=== PATIENT | male | born 1985 | race African-American/Black ===

== ENCOUNTER 2016-09-24 22:09 | Emergency (ER) | payer OTHER ==
[~2016-09-24] VITALS: Ht 190.5 cm; Wt 104.3 kg
[~2016-09-24 22:09] MED LIST: AMOXICILLIN500 MG ORAL; CLOTRIMAZOLE15 GM TOPIC; FLUCONAZOLE100 MG ORAL; GUAIFENESIN1200 MG PO; IBUPROFEN600 MG ORAL; NKM; PROMETHAZINE-C118 M1 ORAL; TRAMADOL HCL50 MG ORAL; ZYRTEC10 MG ORAL
[2016-09-24 22:39] VITALS: BP 146/93
[2016-09-24 22:41] LABS: APPEARANCE,URINE CLEAR; KETONES,URINE NEGATIVE (NEGATIVE); LEUKOCYTE ESTERASE ,URINE NEGATIVE (NEGATIVE); NITRITE,URINE NEGATIVE (NEGATIVE); PH,URINE 8 (4.5-8.0); PROTEIN,URINE NEGATIVE (NEGATIVE); UROBILINOGEN,URINE NORMAL MG/DL (0.0-1.0)
[2016-09-24] MEDS ORDERED: Azithromycin 250mg tab ORAL ONE (23:15)
[2016-09-24] MEDS ORDERED: DOXYCYCLINE MO100 MG ORAL (23:20)
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
[2016-09-24] MEDS ORDERED: Lidocaine 1% MPF 10mg/ml 5ml ONE (23:28)
[2016-09-25] VITALS: BP 135/87
[2016-09-25 00:05] VITALS: BP 146/93
== END 2016-09-25 00:05 | disposition home or self-care (01) ==
LOC: EMR 22:40
DX: N34.2 Other urethritis (principal)
CPT/HCPCS: 81003; 96372; 99283; J0696

== ENCOUNTER 2017-09-16 18:54 | Emergency (ER) | payer OTHER ==
[~2017-09-16] VITALS: Ht 190.5 cm; Wt 102.1 kg
[~2017-09-16 18:54] MED LIST changes: +DOXYCYCLINE MO100 MG ORAL
[2017-09-16 19:37] VITALS: BP 113/74
[2017-09-16] MEDS ORDERED: Ketorolac 60mg Inj IM ONE (20:00)
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
[2017-09-16] MEDS ORDERED: LIDODERM700 M1 TOPIC (20:04)
[2017-09-16] MEDS ORDERED: IBUPROFEN800 MG ORAL (20:04)
[2017-09-16] MEDS ORDERED: CYCLOBENZAPRINE10 MG ORAL (20:04)
[2017-09-16 20:42] VITALS: BP 129/72
== END 2017-09-16 20:43 | disposition home or self-care (01) ==
LOC: EMR 19:26
DX: S13.4XXA Sprain of ligaments of cervical spine, initial encounter (principal); V43.52XA Car driver injured in collision with other type car in traffic accident, initial encounter; Y93.9 Activity, unspecified; Y92.410 Unspecified street and highway as the place of occurrence of the external cause; M25.551 Pain in right hip; M25.561 Pain in right knee
CPT/HCPCS: 96372; 99283

== ENCOUNTER 2017-09-24 16:37 | Emergency (ER) | payer OTHER ==
[~2017-09-24] VITALS: Ht 190.5 cm; Wt 104.3 kg
[~2017-09-24 16:37] MED LIST changes: +CYCLOBENZAPRINE10 MG ORAL; +IBUPROFEN800 MG ORAL; +LIDODERM700 M1 TOPIC
[2017-09-24] MEDS ORDERED: Norco 5mg/325mg tab ORAL ONE (17:15)
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
[2017-09-24 17:21] VITALS: BP 121/81
[2017-09-24] MEDS ORDERED: Tetanus/Diptheria/Pertussis Vaccine 0.5ml Syr IM ONE (17:30)
[2017-09-24] MEDS ORDERED: Bacitracin Oint UD TOPIC ONE (17:30)
[2017-09-24] MEDS ORDERED: IBUPROFEN600 MG ORAL (18:41)
[2017-09-24] MEDS ORDERED: BACITRACIN-P28.35 GM TP (18:45)
[2017-09-24 18:59] VITALS: BP 118/78
--- NOTE | 2017-09-25 08:44 | Diagnostic Imaging Report ---
Indication: Chest pain Technique: One view of the chest Comparison: none Findings: Lungs and pleural spaces are clear. Heart size is normal Impression: No acute process
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
== END 2017-09-24 19:05 | disposition home or self-care (01) ==
LOC: EMR 17:30
DX: S00.511A Abrasion of lip, initial encounter (principal); S20.219A Contusion of unspecified front wall of thorax, initial encounter; S09.8XXA Other specified injuries of head, initial encounter; Y04.2XXA Assault by strike against or bumped into by another person, initial encounter; Y92.511 Restaurant or cafe as the place of occurrence of the external cause; H53.8 Other visual disturbances
CPT/HCPCS: 70450; 71045; 90471; 99284

== ENCOUNTER 2017-10-28 20:08 | Emergency (ER) | payer OTHER ==
[~2017-10-28] VITALS: Ht 190.5 cm; Wt 104.3 kg
[~2017-10-28 20:08] MED LIST changes: +BACITRACIN-P28.35 GM TP
--- NOTE | 2017-10-28 21:16 | Emergency Room Report ---
History of Present Illness General Chief Complaint: Pain Source: Patient Present Illness HPI 32-year-old male presents with 2 days of multiple episodes of cough followed by right shoulder pain and pleuritic chest pain, worse with cough No associated fevers, chills, history of COPD or asthma Patient has not taken any yesw-hkx-frfwnty medications for cough or pain No history of foreign travel, history of TB exposure, no history of recent pneumonia No fevers or chills Denies any abdominal pain, nausea, vomiting, urinary complaints or headache Allergies: Coded Allergies: No Known Allergies (Unverified , 09/24/16) Patient History Past Medical History: none Past Surgical History: none Pertinent Family History: none Social History: Denies: smoking, alcohol use, drug use Immunizations: UTD Reviewed Nursing Documentation: PMH: Agreed; PSxH: Agreed Nursing Documentation-PMH Past Medical History: No Stated History Review of Systems All Other Systems: negative except mentioned in HPI Physical Exam Vital Signs Date Time Temp Pulse Resp B/P (MAP) Pulse Ox O2 Delivery O2 Flow Rate FiO2 10/28/17 20:13 99.7 91 18 121/70 96 Room Air 99.7 Sp02 EP Interpretation: reviewed, normal General Appearance: normal inspection, well appearing, no apparent distress, alert, GCS 15, non-toxic, other - Very well-appearing, speaking on cell phone, texting Head: normocephalic, atraumatic Eyes: bilateral eye PERRL, bilateral eye EOMI ENT: normal ENT inspection, hearing grossly normal, normal pharynx, no angioedema, normal voice, TMs + canals normal, uvula midline, moist mucus membranes Neck: normal inspection, full range of motion, supple, thyroid normal, no meningismus, no bony tend Respiratory: normal inspection, lungs clear, normal breath sounds, no rhonchi, no respiratory distress, no retraction, no accessory muscle use, no wheezing, speaking full sentences Cardiovascular #1: regular rate, rhythm, no edema, no JVD, normal capillary refill Gastrointestinal: normal inspection, normal bowel sounds, non tender, soft, no mass, no peritonitis, non-distended, no guarding, no hernia, no pulsatile mass Genitourinary: no CVA tenderness Musculoskeletal: normal inspection, back normal, normal range of motion, no calf tenderness, pelvis stable, Mazin's Sign negative Neurologic: normal inspection, alert, oriented x3, responsive, coal unloader III-XII nml as tested, motor strength/tone normal, cerebellar normal, normal gait, speech normal Psychiatric: normal inspection, judgement/insight normal, mood/affect normal, no suicidal/homicidal ideation, no delusions Skin: normal inspection, normal color, no rash Lymphatic: normal inspection, no adenopathy Medical Decision Making Diagnostic Impression: Primary Impression: Cough Additional Impression: Pleuritic chest pain ER Course VSS, afebrile Chest x-ray negative for pneumonia, mass, other acute cause of cough Patient's vital signs are stable Observed hemoptysis likely due to multiple episodes of cough Low suspicion for rick hematemesis or hemoptysis Patient has not had any episodes of coughing up blood in the ER Was given albuterol for cough and T3 for pleuritic pain etiology likely costochondritis versus acute bronchitis We'll give prescriptions for Ventolin and Tylenol codeine as needed for pleuritic pain DC home with close primary care follow-up Chest X-Ray Diagnostic Results Chest X-Ray Diagnostic Results : Chest X-Ray Ordered: Yes # of Views/Limited/Complete: 1 View Indication: Other - cough EP Interpretation: Yes Interpretation: no consolidation, no effusion, no pneumothorax, no acute cardiopulmonary disease Impression: No acute disease Electronically Signed by: Dr Lalo Lopez Last Vital Signs Date Time Temp Pulse Resp B/P (MAP) Pulse Ox O2 Delivery O2 Flow Rate FiO2 10/28/17 20:13 99.7 91 18 121/70 96 Room Air 99.7 Status: improved Disposition: HOME, SELF-CARE Referrals: NON PHYSICIAN (PCP) LALO LOPEZ M.D. Oct 28, 2017 21:16
[2017-10-28] MEDS ORDERED: VENTOLIN HFA18 GM INH (21:17)
[2017-10-28] MEDS ORDERED: ACETAMINOPHEN-1 EAC1 ORAL (21:17)
[2017-10-28 21:35] VITALS: BP 121/70
--- NOTE | 2017-10-29 10:31 | Diagnostic Imaging Report ---
Indication: Cough Comparison: 09/24/2017 A single view chest radiograph was obtained. Findings: Cardiomediastinal appearance is within normal limits for age. Pulmonary vascularity is appropriate. The diaphragmatic contour is smooth and costophrenic angles are sharp. No pleural effusions are identified. The bones are unremarkable. Impression: No acute findings
== END 2017-10-28 21:35 | disposition home or self-care (01) ==
LOC: EMR 20:51
DX: R07.89 Other chest pain (principal); R05 Cough
CPT/HCPCS: 71045; 99283

== ENCOUNTER 2018-11-06 19:24 | Emergency (ER) | payer OTHER ==
[~2018-11-06] VITALS: Ht 190.5 cm; Wt 95.3 kg
[~2018-11-06 19:24] MED LIST changes: +ACETAMINOPHEN-1 EAC1 ORAL; +VENTOLIN HFA18 GM INH
[2018-11-06 19:30] VITALS: BP 137/84
--- NOTE | 2018-11-06 19:30 | NUR ---
ED Nurse Note: Patient walked into ED accompanied by SO c/o bilateral ear pain that radiates to his jaw for 2 weeks now. patient rates his pain a 9/10. patient is alert and oriented x4, ambulatory with a steady gait, VSS
--- NOTE | 2018-11-06 20:03 | Diagnostic Imaging Report ---
Indications: 9 out of 10 right ear and jaw pain for 2 weeks Technique: Spiral images obtained through the facial bones. No IV contrast utilized. Multiplanar reconstructions were generated.Total dose length product 608.43 mGycm. CTDIvol(s) 28.19 mGy. Dose reduction achieved using automated exposure control Comparison: none Findings: Grossly unremarkable mandibles and temporomandibular joints. No acute fractures. Grossly unremarkable middle ear structures. The mastoids are clear. There is a left maxillary sinus mucous retention cyst. There is minimal left ethmoid mucosal disease. The dentition is intact. The maxillary ostia are patent. The nasal septum is essentially midline. Impression: Essentially unremarkable exam Incidental finding minimal sinus disease This agrees with the preliminary interpretation provided overnight by [employer] [facility] service. The CT scanner at [facility] is accredited by the [employer] and the scans are performed using protocols designed to limit radiation exposure to as low as reasonably achievable to attain images of sufficient resolution adequate for diagnostic evaluation.
--- NOTE | 2018-11-06 20:05 | Emergency Room Report ---
History of Present Illness General Chief Complaint: Earache Source: Patient Present Illness HPI 33-year-old male with no significant past medical history here complaining of 2 weeks of pain and pressure of her right zygomatic bone and maxilla radiating to his right ear. Patient started applying a Q-tip thinking that the pain is coming from the right ear and has minimal bleeding of the right ear. Denies any hearing loss, vertigo, dizziness, trauma to the face, cough and congestion. Patient is rating the pain 9 out of 10 denying tingling and numbness and has full range of motion of his facial nerve. Denies sensory or motor deficits. Denies blurry vision. Denies photophobia, chest pain, palpitation, shortness of breath, and all other associated symptoms has not taken medication to alleviate his symptoms today. Denies any recent dental work or tooth pain Allergies: Coded Allergies: No Known Allergies (Unverified , 09/24/16) Patient History Past Medical History: see triage record Past Surgical History: unable to obtain Pertinent Family History: none Immunizations: UTD Reviewed Nursing Documentation: PMH: Agreed; PSxH: Agreed Nursing Documentation-PMH Past Medical History: No Stated History Review of Systems All Other Systems: negative except mentioned in HPI Physical Exam Vital Signs Date Time Temp Pulse Resp B/P (MAP) Pulse Ox O2 Delivery O2 Flow Rate FiO2 11/06/18 19:27 97.9 91 18 137/84 (101) 96 Room Air Sp02 EP Interpretation: reviewed, normal General Appearance: normal inspection, well appearing, no apparent distress, alert, GCS 15 Head: normocephalic, atraumatic Eyes: bilateral eye normal inspection, bilateral eye PERRL ENT: hearing grossly normal, normal pharynx, no angioedema, TMs + canals normal , uvula midline, moist mucus membranes, dry mucus membranes, other - Right maxillary sinus tenderness to palpation Neck: normal inspection, full range of motion, supple, thyroid normal Respiratory: normal inspection, chest non-tender, lungs clear, normal breath sounds, no rhonchi, no respiratory distress, no retraction, no wheezing Cardiovascular #1: normal inspection, no gallop, no murmur, normal capillary refill Gastrointestinal: normal inspection, non tender, no mass Rectal: deferred Genitourinary: no CVA tenderness Musculoskeletal: normal inspection, back normal, digits/nails normal, gait/ station normal, normal range of motion, non-tender Neurologic: normal inspection, alert, oriented x3, responsive Psychiatric: normal inspection, judgement/insight normal Lymphatic: normal inspection, no adenopathy Medical Decision Making PA Attestation All my diagnosis and treatment plans were reviewed ad discussed with my supervising physician Dr. Palomo Diagnostic Impression: Primary Impression: Sinusitis ER Course 33-year-old male with no significant past medical history here complaining of 2 weeks of pain and pressure of her right zygomatic bone and maxilla radiating to his right ear. Patient started applying a Q-tip thinking that the pain is coming from the right ear and has minimal bleeding of the right ear. Denies any hearing loss, vertigo, dizziness, trauma to the face, cough and congestion. Patient is rating the pain 9 out of 10 denying tingling and numbness and has full range of motion of his facial nerve. Denies sensory or motor deficits. Denies blurry vision. Denies photophobia, chest pain, palpitation, shortness of breath, and all other associated symptoms has not taken medication to alleviate his symptoms today. Denies any recent dental work or tooth pain Ddx considered but are not limited to: Otitis media, otitis externa, sinusitis, sinus abscess, TMJ Vital signs: are WNL, pt. is afebrile H&PE are most consistent with: Sinusitis, TMJ ORDERS: Facial CT scan no contrast, Augmentin, naproxen ED INTERVENTIONS: None required at this time. DISCHARGE: At this time pt. is stable for d/c to home. Will provide printed patient care instructions, and any necessary prescriptions. Care plan and follow up instructions have been discussed with the patient prior to discharge. Follow-up with the primary care provider avoid chewing hard food see a dentist also advised to be seen by ear nose throat doctor CT/MRI/US Diagnostic Results CT/MRI/US Diagnostic Results : Imaging Test Ordered: Facial CT no contrast Impression CT FACIAL Without Contrast: The only clinical history provided was "pain". No information regarding history of trauma or presence of inflammatory changes. Polyp or mucous retention cyst left maxillary sinus. Negative for air-fluid levels paranasal sinuses. Negative for fracture. No soft tissue fluid collections. Last Vital Signs Date Time Temp Pulse Resp B/P (MAP) Pulse Ox O2 Delivery O2 Flow Rate FiO2 11/06/18 19:27 97.9 91 18 137/84 (101) 96 Room Air Disposition: HOME, SELF-CARE Condition: Stable Scripts Naproxen* (NAPROXEN*) 500 Mg Tablet 500 MG ORAL TWICE A DAY, #15 TAB Prov: Rhys Ramesh 11/06/18 Amoxicillin/Potassium Clav 875-125* (AUGMENTIN 875-125 TABLET*) 1 Each Tablet 1 TAB ORAL TWICE A DAY for 10 Days, #20 TAB Prov: Rhys Ramesh 11/06/18 Patient Instructions: Sinusitis, Adult, [id number] Additional Instructions: Take medication as directed follow-up with your primary care provider avoid excoriation of your ear use of Q-tips Rhys Ramesh Nov 06, 2018 20:05
[2018-11-06] MEDS ORDERED: AUGMENTIN 875-1 EAC1 ORAL (20:06)
[2018-11-06] MEDS ORDERED: NAPROXEN500 M2 ORAL (20:06)
[2018-11-06 20:10] VITALS: BP 137/84
--- NOTE | 2018-11-06 20:10 | NUR ---
ER DISCHARGE NOTE: Patient is cleared to be discharged per ERMD, pt is aox4, on room air, with stable vital signs. pt was given dc and prescription instructions, pt was able to verbalize understanding, pt id band removed without complications. pt is able to ambulate with steady gait. pt took all belongings.
== END 2018-11-06 20:30 | disposition home or self-care (01) ==
LOC: EMR 20:11
DX: J32.9 Chronic sinusitis, unspecified (principal)
CPT/HCPCS: 70486; 99284

== ENCOUNTER 2019-05-28 10:01 | Emergency (ER) | payer OTHER ==
[~2019-05-28] VITALS: Ht 188 cm; Wt 104.3 kg
[~2019-05-28 10:01] MED LIST changes: +AUGMENTIN 875-1 EAC1 ORAL; +NAPROXEN500 M2 ORAL
[2019-05-28 10:16] VITALS: BP 137/95
--- NOTE | 2019-05-28 10:16 | NUR ---
ED Nurse Note: Pt ambulated to ed c/o flu like symptoms x 1 week; nasal congestions, cough, runny nose.
--- NOTE | 2019-05-28 10:17 | NUR ---
ED Nurse Note: reports frontal headache, sore throat, and nasal pain
[2019-05-28] MEDS ORDERED: AMOXICILLIN500 MG ORAL (10:52)
[2019-05-28] MEDS ORDERED: IBUPROFEN600 MG ORAL (10:52)
[2019-05-28 11:00] VITALS: BP 125/88
--- NOTE | 2019-05-28 11:01 | NUR ---
ER DISCHARGE NOTE: Patient is cleared to be discharged per ERMD, pt is aox4, on room air, with stable vital signs. pt was given dc and prescription instructions, pt was able to verbalize understanding, pt id band removed. pt is able to ambulate with steady gait. pt took all belongings.
--- NOTE | 2019-06-04 09:02 | Emergency Room Report ---
History of Present Illness General Chief Complaint: Flu Like Symptoms Source: Patient Present Illness HPI Patient is a 33-year-old male who presents after increased facial pain. Gradual onset of symptoms. Patient reports of increased pain to the right side of his face after approximate 1 week. Recent sore throat. Denies any neck stiffness. Denies any fever. Not been vomiting. Denies visual changes. Allergies: Coded Allergies: No Known Allergies (Unverified , 09/24/16) Patient History Past Medical History: see triage record Reviewed Nursing Documentation: PMH: Agreed; PSxH: Agreed Nursing Documentation-PMH Past Medical History: No Stated History Review of Systems All Other Systems: negative except mentioned in HPI Physical Exam General Appearance: well appearing, no apparent distress, alert, GCS 15, obese Head: normocephalic, atraumatic ENT: hearing grossly normal, normal voice, other - Tenderness over maxillary sinus Neck: full range of motion, supple Respiratory: lungs clear, no respiratory distress, speaking full sentences Cardiovascular #1: normal inspection, normal peripheral pulses, no edema Gastrointestinal: normal inspection, soft Musculoskeletal: no calf tenderness Neurologic: residential direct support professional III-XII nml as tested, oriented x3, normal gait Psychiatric: normal inspection, mood/affect normal Skin: no rash Medical Decision Making Diagnostic Impression: Primary Impression: Sinusitis ER Course Patient presented for increased facial pain congestion. Differential diagnosis includes not limited to allergic rhinitis, sinusitis, viral respiratory infection among others. Patient has a benign exam and does not appear to require any imaging or laboratory testing at this time. Patient peers to have acute bacterial sinusitis. He will be treated with oral antibiotics. He was advised to follow-up with his primary care physician for recheck. Advised to return if worse. The patient is advised to follow up with primary care doctor in 1-2 days. Patient is advised to return if any worsening condition or if any changes in status that are concerning. This report is dictated with [employer] assistant press operator software which may occasionally lead to discrepancies related to use of this software. Status: improved Disposition: HOME, SELF-CARE Condition: Stable Scripts Ibuprofen* (MOTRIN*) 600 Mg Tablet 600 MG ORAL Q6H PRN for For Pain, #30 TAB 0 Refills Prov: Cullen Palomo MD 05/28/19 Amoxicillin* (AMOXIL*) 500 Mg Capsule 500 MG ORAL THREE TIMES A DAY, #21 CAP Prov: Cullen Palomo MD 05/28/19 Referrals: NON PHYSICIAN (PCP) Patient Instructions: Sinus Headache, [id number] Cullen Palomo MD Jun 04, 2019 09:02
== END 2019-05-28 11:00 | disposition home or self-care (01) ==
LOC: EMR 11:00
DX: R51 Headache (principal); R07.0 Pain in throat
CPT/HCPCS: 99282

== ENCOUNTER 2019-09-17 22:15 | Emergency (ER) | payer OTHER ==
[~2019-09-17] VITALS: Ht 188 cm; Wt 104.3 kg
[2019-09-17] MEDS ORDERED: BENADRYL ALLERG25 M1 PO (22:37)
[2019-09-17] MEDS ORDERED: BENADRYL CRE1 APPLIC TOPIC (22:37)
--- NOTE | 2019-09-17 22:40 | Emergency Room Report ---
History of Present Illness General Chief Complaint: Skin Rash/Abscess Source: Patient Present Illness HPI Disclaimer: Please note that this report is being documented using [employer] technology. This can lead to erroneous entry secondary to incorrect interpretation by the dictating instrument. HPI: 33-year-old male history of eczema presents for evaluation of itchy rash. Symptoms present for approximately 1 week. Notes a scaly and itchy rash over the flexor surfaces of the elbows, behind the knees and over the ankles. Similar to eczema flares he had as a kid per patient. Sometimes they standing after he scratches them for too much. He has had some minor skin breakdown and bleeding but no significant skin injuries. Denies surrounding swelling, purulent drainage, vesicles or draining abscesses. Denies fever, chills, nausea , vomiting, diarrhea, chest pain, palpitations, cough, shortness of breath or other changes in his health. He has been applying hydrocortisone cream with minimal improvement. He states cold showers sometimes help. He tried to follow with his PMD but there were no appointments for several months. He has not seen a patternmaker helper in several years. PMH: Eczema PSH: Reviewed Allergies: Denies Social Hx: Denies Allergies: Coded Allergies: No Known Allergies (Unverified , 09/24/16) COVID-19 Screening Contact w/high risk pt: No Recent Travel to affected area: No Experienced COVID-19 symptoms?: No COVID-19 Testing performed BALLET DANCER: No Nursing Documentation-PMH Past Medical History: No Stated History Review of Systems All Other Systems: negative except mentioned in HPI Physical Exam Vital Signs Date Time Temp Pulse Resp B/P (MAP) Pulse Ox O2 Delivery O2 Flow Rate FiO2 09/17/19 22:23 98.4 86 19 137/84 (101) 100 Room Air General: Awake and alert, no acute distress HEENT: NC/AT. EOMI. Resp: Normal work of breathing Skin: Intact. Plaque-like lesions over the flexor surfaces of the elbows, knees and ankles bilaterally. No vesicles, no drainage, minor edema, minor excoriations but no active bleeding. No signs of surrounding infection. Some scaling on top. MSK: Normal tone and bulk. Moving all extremities. No obvious deformity. Neuro: Awake and alert. Mentating appropriately Medical Decision Making Diagnostic Impression: Primary Impression: Atopic dermatitis ER Course 33-year-old male presents for evaluation of itchy rash for 1 week. Symptoms consistent with atopic dermatitis no psoriasis, fungal infection, cellulitis, abscess, HSV around the differential they are less likely based on history and physical exam. Patient is already using hydrocortisone cream with minimal improvement. Will start on Benadryl cream and oral Benadryl to control his symptoms. Provided information on proper skin and wound care. He will follow- up with his PMD for dermatology referral. Instructed to return to the emergency room new or worsening symptoms. Last Vital Signs Date Time Temp Pulse Resp B/P (MAP) Pulse Ox O2 Delivery O2 Flow Rate FiO2 09/17/19 22:23 98.4 86 19 137/84 (101) 100 Room Air Disposition: HOME, SELF-CARE Condition: Stable Scripts Diphenhydramine HCl/Zinc Acet (Benadryl Itch Stopping Crm) 28.3 Gm Cream..g. 1 APPLIC TOPIC Q6HR for 5 Days, #1 TUBE Prov: Med Fernandez MD 09/17/19 Diphenhydramine Hcl (BENADRYL ALLERGY) 25 Mg Tablet 25 MG PO Q6HR for 5 Days, #20 TAB Prov: Med Fernandez MD 09/17/19 Referrals: [facility] Juarez [facility] Patient Instructions: Eczema Additional Instructions: Follow-up with your primary care doctor tomorrow for referral to dermatology. Continue the hydrocortisone cream but add the Benadryl to help with the itching. Apply cold packs as well. Reviewed the information on eczema provided in your discharge paperwork. Return to the emergency department new or worsening symptoms. Med Fernandez MD Sep 17, 2019 22:40
[2019-09-17 22:50] VITALS: BP 137/84
== END 2019-09-17 22:50 | disposition home or self-care (01) ==
LOC: EMR 22:29
DX: L20.9 Atopic dermatitis, unspecified (principal)
CPT/HCPCS: 99282